=== PATIENT | female | born 1990 ===

== ENCOUNTER 2016-09-18 11:46 | Emergency (ER) | payer MEDICAID, OTHER ==
[2016-09-18 12:28] VITALS: BMI 17.2
[2016-09-18 12:30] VITALS: RESP 19; O2SAT 98
--- NOTE | 2016-09-18 13:10 | ED PDOC ---
HPI: Seizure Time Seen by Provider: 09/18/16 12:15 Chief Complaint (Nursing): Seizure History Per: Patient History/Exam Limitations: no limitations Recent Seizure Activity Began: Just Before Arrival Number Of Seizures: One Length Of Seizures (Duration): Minutes (a few minutes) Quality Of Seizure: Generalized Associated Symptoms: Injury As A Result Of Seizure Activity (struck right head, nech and face). denies: Bit Tongue, Incontinence Of Urine, Incontinence Of Stool Post-ictal Period: Yes Severity: Moderate Additional History Per: Patient Additional Complaint(s): long history of seizure seen by Dr. Vargas, on trileptal 750 mg, states seizure one monthly for approx 4 to 5 months pt struck head and has [place] but no n/t/w/bv/ dv. pt states she is for approx 6 weeks but plan to abort. no pelvic pin or vag bleed or vag discharge Past Medical History Reviewed: Historical Data, Nursing Documentation, Vital Signs Vital Signs: Last Vital Signs Temp 98.8 F 09/18/16 12:26 Pulse 90 09/18/16 12:26 Resp 19 09/18/16 12:26 BP 106/72 09/18/16 12:34 Pulse Ox 98 09/18/16 13:14 - Medical History PMH: Seizures - Family History Family History: States: Unknown Family Hx - Living Arrangements Living Arrangements: With Family - Home Medications Home Medications: Ambulatory Orders Medication Instructions Recorded OXcarbazepine [Trileptal] 150 mg PO BID 30 Days 09/18/16 Oxcarbazepine [Trileptal] 750 mg PO BID 09/18/16 - Allergies Allergies/Adverse Reactions: Allergies Allergy/AdvReac Type Severity Reaction Status Date / Time No Known Allergies Allergy Verified 11/04/13 01:22 Review of Systems ROS Statement: Except As Marked, All Systems Reviewed And Found Negative Constitutional: Negative for: Fever, Chills Eyes: Negative for: Vision Change Cardiovascular: Negative for: Chest Pain, Palpitations Respiratory: Negative for: Cough, Shortness of Breath Gastrointestinal: Negative for: Nausea, Vomiting, Abdominal Pain Genitourinary Female: Negative for: Hematuria, Vaginal Discharge, Vaginal Bleeding, Pelvic Pain Musculoskeletal: Positive for: Neck Pain Neurological: Positive for: Headache. Negative for: Weakness, Numbness, Incoordination, Confusion, Seizures, Altered Mental Status Physical Exam - Reviewed Nursing Documentation Reviewed: Yes Vital Signs Reviewed: Yes - Physical Exam Appears: Positive for: Well, No Acute Distress Head Exam: Positive for: ATRAUMATIC, NORMAL INSPECTION, NORMOCEPHALIC Eye Exam: Positive for: Normal appearance, EOMI, PERRL ENT: Positive for: Pharynx Is (clear,mmm) Neck: Positive for: Normal, Supple, Pain On Movement Of Neck. Negative for: Decreased ROM, Limited ROM, Trachea Midline Cardiovascular/Chest: Positive for: Regular Rate, Rhythm, Chest Non Tender. Negative for: Edema, Gallop, Murmur, Bradycardia, Tachycardia Respiratory: Positive for: Normal Breath Sounds. Negative for: Decreased Breath Sounds, Accessory Muscle Use, Crackles, Rales, Rhonchi, Stridor, Wheezing , Respiratory Distress Pulses-Radial (L): 2+ Pulses-Radial (R): 2+ Gastrointestinal/Abdominal: Positive for: Normal Exam, Bowel Sounds, Soft. Negative for: Tenderness Back: Positive for: Normal Inspection. Negative for: L CVA Tenderness, R CVA Tenderness, Vertebral Tenderness, Decreased ROM, Muscle Spasm Extremity: Positive for: Normal ROM. Negative for: Tenderness, Pedal Edema, Calf Tenderness, Deformity, Swelling Neurologic/Psych: Positive for: Alert, road monkey II-XII, Oriented, Mood/Affect (calm) , Cerebellar Tests (ftn nml). Negative for: Motor/Sensory Deficits, Aphasia, Facial Droop - Laboratory Results Result Diagrams: 09/18/16 13:20 09/18/16 13:20 - ECG ECG: Positive for: Interpreted By Me ECG Rhythm: Positive for: Normal QRS, Normal ST Segment, Sinus Rhythm. Negative for: ST/T Changes Interpretation Of Abn EKG: no evidence of ischemia O2 Sat by Pulse Oximetry: 98 Pulse Ox Interpretation: Normal - Progress ED Course And Treament: per Dr vargas will increase trileptal to 900 mg po bid. advise close f/u advise not to drive. pt agree's with plan nad leaves ambulatory and in good spiritis Condition: Improved Disposition - Clinical Impression Clinical Impression: Epileptic seizure, generalized - Patient ED Disposition Is Patient to be Admitted: No Counseled Patient/Family Regarding: Studies Performed, Diagnosis, Need For Followup, Rx Given - Disposition Referrals: Hung Vargas MD [Medical Doctor] - (2 to 3 days) Disposition: Routine/Home Disposition Time: 16:09 Condition: GOOD Prescriptions: OXcarbazepine [Trileptal] 150 mg PO BID 30 Days Instructions: Epilepsy (ED) Forms: [facility] (Setswana)
[2016-09-18 13:37] LABS: BASO % 0.4 % (0.0-2.0); EOS # 0.1 K/uL (0.0-0.7); EOS % 1.2 % (0.0-4.0); HEMATOCRIT 42.3 % (34.0-47.0); LYMPH # 1.6 K/uL (1.0-4.3); LYMPH % 19.8 % (20.0-40.0); MEAN CELL VOLUME 92.8 fl (81.0-99.0); MEAN CORPUSCULAR HEMOGLOBIN 31.1 pg (27.0-31.0); MEAN CORPUSCULAR HGB CONC 33.5 g/dL (33.0-37.0); MEAN PLATELET VOLUME 8.2 fl (7.2-11.7); MONO # 0.5 K/uL (0.0-0.8); MONO % 5.8 % (0.0-10.0); NEUT # 5.8 K/uL (1.8-7.0); NEUT % 72.8 % (50.0-75.0); NRBC % 0.1 % (0.0-0.0); RED CELL DISTRIBUTION WIDTH 14.6 % (11.5-14.5); WHITE BLOOD COUNT 7.9 K/uL (4.8-10.8)
[2016-09-18 13:45] LABS: ALB/GLOB RATIO 1.5 (1.0-2.1); ALCOHOL SERUM < 10 mg/dl (0-10); ALKALINE PHOSPHATASE 48 U/L (38-126); ALT/SGPT 36 U/L (9-52); AST/SGOT 20 U/L (14-36); BILIRUBIN,TOTAL 0.3 mg/dl (0.2-1.3); BLOOD UREA NITROGEN 7 mg/dl (7-17); CARBON DIOXIDE 23 mmol/L (22-30); CHLORIDE 99 mmol/L (98-107); GFR AFRICAN-AMERICAN > 60; GLUCOSE,RANDOM 92 mg/dL (65-105); MAGNESIUM 1.9 MG/DL (1.6-2.3); POTASSIUM 3.5 MMOL/L (3.6-5.0); SODIUM 132 mmol/l (132-148); TOTAL PROTEIN 7.3 G/DL (6.3-8.2)
[2016-09-18 13:47] LABS: URINE BACTERIA OCC (<OCC); URINE BILIRUBIN NEGATIVE (NEGATIVE); URINE BLOOD NEGATIVE (NEGATIVE); URINE COLOR YELLOW (YELLOW); URINE GLUCOSE (UA) NEG (Normal); URINE KETONE NEGATIVE (NEGATIVE); URINE LEUKOCYTE ESTERASE NEG Leu/uL (Negative); URINE PROTEIN 100 mg/dL (NEGATIVE); URINE UROBILINOGEN 0.2-1.0 mg/dL (0.2-1.0); WBC URINE 1 /hpf (0-5)
--- NOTE | 2016-09-18 13:59 | CT ---
PROCEDURE: CT HEAD WITHOUT CONTRAST. HISTORY: trauma COMPARISON: None available. TECHNIQUE: Axial computed tomography images were obtained through the head/brain without intravenous contrast. Radiation dose: Total exam DLP = 1058 mGy-cm. This CT exam was performed using one or more of the following dose reduction techniques: Automated exposure control, adjustment of the mA and/or kV according to patient size, and/or use of iterative reconstruction technique. FINDINGS: HEMORRHAGE: No intracranial hemorrhage. BRAIN: Density throughout the zamudio and white matter structures above or below the tentorium appears within normal limits diffusely. There is no mass effect or extra-axial collection identified and midline anatomy appears within normal limits as well. VENTRICLES: Unremarkable. No hydrocephalus. CALVARIUM: No fracture identified. No suspicious lytic or blastic change. . PARANASAL SINUSES: Unremarkable as visualized. No significant inflammatory changes. MASTOID AIR CELLS: Unremarkable as visualized. No inflammatory changes. OTHER FINDINGS: None. IMPRESSION: Unremarkable unenhanced head CT. CT or MRI are available follow-up if clinically warranted.
--- NOTE | 2016-09-18 14:08 | CT ---
PROCEDURE: CT MAXILLOFACIAL BONES WITHOUT CONTRAST HISTORY: trauma COMPARISON: None TECHNIQUE: Contiguous axial CT images of the maxillofacial bones were obtained. Coronal and sagittal reformats were generated. Radiation dose: Total exam DLP = 668.67 mGy-cm. This CT exam was performed using one or more of the following dose reduction techniques: Automated exposure control, adjustment of the mA and/or kV according to patient size, and/or use of iterative reconstruction technique. FINDINGS: NASAL BONES: Unremarkable. ORBITS: Unremarkable. PARANASAL SINUSES/ MASTOIDS: Clear. MAXILLA: Unremarkable. MANDIBLE/ TEMPOROMANDIBULAR JOINTS: Unremarkable. SKULL BASE: Unremarkable. TEMPORAL BONES: Middle ears and mastoid grossly unremarkable. OTHER FINDINGS: None. IMPRESSION: Unremarkable non contrast enhanced CT of the maxillofacial bones.
[2016-09-18] MEDS: Sodium Chloride 0.9% 1,000 ML IV SCH (14:15)
--- NOTE | 2016-09-18 14:24 | CT ---
PROCEDURE: CT Cervical Spine without contrast HISTORY: Trauma COMPARISON: Cervical spine without contrast 10/01/2012. TECHNIQUE: Axial computed tomography images were obtained of the cervical spine without the use of intravenous contrast. Coronal and sagittal reformatted images were created and reviewed. Radiation dose: Total exam DLP = 446 mGy-cm. This CT exam was performed using one or more of the following dose reduction techniques: Automated exposure control, adjustment of the mA and/or kV according to patient size, and/or use of iterative reconstruction technique. FINDINGS: VERTEBRAE: No fracture. Mild reversal curvature is again identified. No destructive bony lesion. DISCS/SPINAL CANAL/NEURAL FORAMINA: No significant central canal or neural foraminal stenosis. Discs heights are grossly preserved. No gross disc herniation is appreciable. MRI can be performed for further characterization if there is clinical trial for possible HNP. PARASPINAL SOFT TISSUES: Unremarkable. OTHER FINDINGS: None. IMPRESSION: No definite significant interval changes compared a 10/01/[address] Mild reversal the cervical curvature is again identified. .
--- NOTE | 2016-09-18 16:56 | US ---
HISTORY: seizure eval preg COMPARISON: None available. TECHNIQUE: Transvaginal pelvic ultrasonography. FINDINGS: UTERUS: Measures 6.8 x 4.0 x 5.5 cm. Normal in size and appearance. Gestational sac is identified identified with the endometrial cavity with mildly inhomogeneous myometrial echotexture evident. ENDOMETRIUM: A gestational sac is identified within the endometrial cavity with a mean diameter of 0.7 cm. A yolk sac is identified but no pole is yet visible. The decidual reaction appears diffusely unremarkable. CERVIX: No cervical abnormality identified. RIGHT OVARY: Measures 2.3 x 1.7 x 2.1 cm. A mildly complex cyst identified suggestive of a corpus luteum cyst measuring 1.2 cm. Normal flow. LEFT OVARY: Measures 1.9 x 1.4 x 1.9 cm. No solid mass. Normal flow. FREE FLUID: No significant free fluid noted. OTHER FINDINGS: An ectopic gestation is not identified and is unlikely in this patient given the presence of the yolk sac. Clinically correlate further. IMPRESSION: An early intrauterine gestation identified with a mean sac diameter suggesting less than 5 weeks estimated gestational age. This agrees with LMP derived dates of 5 weeks 2 days. Yolk sac is present in the gestational sac. Clinical and sonographic follow-up are advised in 1 week.
[2016-09-18 17:13] VITALS: BP 128/78; PULSE 78; TEMP 97.7
--- NOTE | 2016-09-20 18:27 | CARD ---
APPROVED REPORT EKG Measurement Heart [id number] <Conclusion> Normal sinus rhythm Normal ECG
== END 2016-09-18 17:13 | disposition home or self-care (01) ==
LOC: H.ER 11:46
DX: G40.309 Generalized idiopathic epilepsy and epileptic syndromes, not intractable, without status epilepticus (principal)